=== PATIENT | female | born 1945 | race African-American/Black ===

== ENCOUNTER 2016-05-11 18:56 | Emergency (ER) | payer MEDICARE, MEDICAID ==
[~2016-05-11] VITALS: Ht 162.6 cm; Wt 59.1 kg
[2016-05-11] MEDS ORDERED: NADO20 PO (19:06)
[2016-05-11] MEDS ORDERED: CLON1 PO (19:06)
[2016-05-11 19:25] LABS: BASOPHILS # (AUTO) 0.01 K/uL (0.00-0.20); BASOPHILS % (AUTO) 0.1 % (0.0-2.0); EOSINOPHILS # (AUTO) 0.14 K/uL (0.00-0.70); EOSINOPHILS % (AUTO) 1.28 % (1.0-6.0); HEMATOCRIT 35.5 % (36-46); HEMOGLOBIN 11.6 g/dL (12.0-16.0); LYMPHOCYTES # (AUTO) 1.8 K/uL (1.0-4.8); MEAN CORPUSCULAR HEMOGLOBIN 27.9 pg (26.0-34.0); MEAN CORPUSCULAR HGB CONC 32.8 G/dL (31.0-37.0); MEAN CORPUSCULAR VOLUME 85 fL (80-100); MONOCYTES # (AUTO) 0.5 K/uL (0.1-1.0); MONOCYTES % (AUTO) 4.5 % (2.0-9.0); NEUTROPHILS # (AUTO) 8.6 K/uL (1.8-7.7); NEUTROPHILS % (AUTO) 78.2 % (40.0-70.0); PLATELET COUNT (AUTO) 210 K/uL (150-450); RED BLOOD CELL COUNT(AUTO) 4.17 MIL/uL (4.00-5.20); RED CELL DISTRIBUTION WIDTH 15.2 % (11.5-14.5)
[2016-05-11 19:39] LABS: PROTHROMBIN TIME 10.7 SEC (9.4-11.6)
[2016-05-11 19:49] LABS: ANION GAP 8 mmol/L (8-16); CALCIUM, TOTAL 8.9 mg/dL (8.8-10.5); CARBON DIOXIDE 30 mmol/L (22-29); CHLORIDE 103 mmol/L (98-107); CREATININE 1.28 mg/dL (0.60-1.30); GLOMERULAR FILTR. RATE CALC 50 mL/min (>60); POTASSIUM 4.5 mmol/L (3.5-5.1); SODIUM SERUM 141 mmol/L (136-145); UREA NITROGEN, BLOOD 16 mg/dL (7-18)
[2016-05-11 19:50] LABS: B-TYPE NATRIURETIC PEPTIDE 117 pg/mL (0-100)
[2016-05-11 20:14] LABS: ALANINE AMINOTRANSFERASE 40 U/L (12-78); ALBUMIN 3.5 g/dL (3.4-5.0); ASPARTATE AMINOTRANSFERASE 20 U/L (15-37); BILIRUBIN,TOTAL 0.2 mg/dL (0.1-1.0); CREATINE KINASE MB 0.6 ng/mL (0-5); CREATINE KINASE, TOTAL 102 U/L (26-192); TOTAL PROTEIN, SERUM 7.2 g/dL (6.4-8.2)
[2016-05-11] MEDS ORDERED: MECLIZINE HCL 25 MG TABLET PO ONE (21:15)
[2016-05-11] MEDS: ClonazePAM 1 MG TABLET PO ONE ×2 (22:18→22:49)
[2016-05-11 22:24] VITALS: BP 136/66
== END 2016-05-11 22:53 | disposition home or self-care (01) ==
LOC: EMS 18:57
DX: F41.9 Anxiety disorder, unspecified (principal); R42 Dizziness and giddiness; G47.00 Insomnia, unspecified; I10 Essential (primary) hypertension; Z88.0 Allergy status to penicillin; Z88.2 Allergy status to sulfonamides; Z91.041 Radiographic dye allergy status
CPT/HCPCS: 70450; 93005; 99285